=== PATIENT | female | born 2000 | race Asian ===

== ENCOUNTER 2018-10-02 11:23 | Outpatient (CLI) | payer BC | END 2018-10-02 11:24 | disposition home or self-care (01) | LOC: LAB 11:23 | PROVIDERS: ATTEND Family Medicine | DX: Z11.1 Encounter for screening for respiratory tuberculosis (principal) | CPT/HCPCS: 36415; 81599; 86480 ==

== ENCOUNTER 2019-02-02 08:00 | Outpatient (CLI) | payer BC ==
[2019-02-02 19:09] LABS: PROLACTIN 13.98 ng/mL
[2019-02-02 19:32] LABS: FOLLICLE STIMULATING HORMONE 5.92 mIU/mL
== END 2019-02-02 23:59 | disposition home or self-care (01) ==
LOC: LAB.R 08:00
PROVIDERS: ATTEND Family Medicine
DX: N39.0 Urinary tract infection, site not specified (principal); N91.2 Amenorrhea, unspecified
CPT/HCPCS: 36415; 82670; 83001; 84146; 84403; 84443; 84702; 87086

== ENCOUNTER 2019-02-18 13:58 | Outpatient (CLI) | payer BC ==
--- NOTE | 2019-02-19 10:26 | Ultrasound Report ---
Reason: AMENORRHEA Procedure Date: 02/18/2019 Accession Number: [id number] / [id number] Procedure: US - Pelvic w/Transvaginal CPT Code: FULL RESULT: EXAM: PELVIC ULTRASOUND EXAM DATE: 02/18/2019 02:42 PM. CLINICAL HISTORY: AMENORRHEA. COMPARISON: None. TECHNIQUE: Realtime transabdominal pelvic scan performed to identify the uterus and adnexa and as an overview of other pelvic structures, followed by transvaginal scan to provide greater detail of the uterus and adnexa, with static image documentation. FINDINGS: Uterus: 7.7 x 2.6 x 4.2 cm, volume 44 cc. Anteverted position. Normal overall size and echotexture. Masses: None. Endometrium: 4.2 mm. Normal thickness of the endometrium. No focal lesions are seen. Cervix: Multiple nabothian cysts are evident. Right Ovary: 3.4 x 2 x 2.2 cm, volume 7.8 cc. Normal echotexture and blood flow. Left Ovary: 2.7 x 2.3 x 2.6 cm, volume 8.4 cc. Normal echotexture and blood flow. Free Fluid: None. Other: None. IMPRESSION: 1. Normal thickness of the endometrium without focal lesions. 2. Multiple cervical nabothian cysts are noted. 3. Bilateral ovaries image within normal limits. [facility]
== END 2019-02-18 13:59 | disposition home or self-care (01) ==
LOC: DI 13:58
PROVIDERS: ATTEND Family Medicine
DX: N88.8 Other specified noninflammatory disorders of cervix uteri (principal); N91.2 Amenorrhea, unspecified
CPT/HCPCS: 76830; 76856

== ENCOUNTER 2019-05-11 08:00 | Outpatient (CLI) | payer BC ==
[2019-05-11 19:19] LABS: BILIRUBIN,URINE NEGATIVE (NEGATIVE); CLARITY,URINE CLEAR (CLEAR); GLUCOSE, URINE (UA) NEGATIVE (NEGATIVE); KETONES,URINE (UA) NEGATIVE (NEGATIVE); LEUKOCYTE ESTERASE, URINE TRACE (NEGATIVE); NITRITE,URINE NEGATIVE (NEGATIVE); OCCULT BLOOD,URINE TRACE-INTA (NEGATIVE); PH,URINE 8.5 PH (5.0-7.5); PROTEIN,URINE NEGATIVE (NEGATIVE); UROBILINOGEN,URINE 1 (NORMAL) E.U./dL (NORMAL)
[2019-05-11 19:31] LABS: BACTERIA,URINE Few /HPF (None Seen); RBC,URINE 0-5 /HPF (0-5); SQUAMOUS EPITHELIAL CELL,UR MANY Squamous (<= Few)
== END 2019-05-11 23:59 | disposition home or self-care (01) ==
LOC: LAB.R 08:00
PROVIDERS: ATTEND Nurse Practitioner Family
DX: B37.3 Candidiasis of vulva and vagina (principal)
CPT/HCPCS: 81001; 81003; 87086

== ENCOUNTER 2020-06-19 10:03 | Outpatient (CLI) | payer OTHER | END 2020-06-19 10:04 | disposition home or self-care (01) | LOC: COV 10:03 | PROVIDERS: ATTEND Family Medicine | DX: Z20.822 Contact with and (suspected) exposure to COVID-19 (principal) ==

== ENCOUNTER 2020-06-29 08:00 | Outpatient (CLI) | payer OTHER ==
[2020-06-29 18:50] LABS: BASOPHILS # (AUTO) 0.1 10^3/uL (0.0-0.1); BASOPHILS % (AUTO) 0.6 %; EOSINOPHILS # (AUTO) 0.1 10^3/uL (0.0-0.7); EOSINOPHILS % (AUTO) 1.7 %; HGB - HEMOGLOBIN 12.7 g/dL (12.0-16.0); LYMPHOCYTES # (AUTO) 2.4 10^3/uL (1.5-3.5); LYMPHOCYTES % (AUTO) 30.8 %; MEAN CORPUSCULAR HEMOGLOBIN 30.1 pg (27.0-31.0); MEAN CORPUSCULAR HGB CONC 32.7 g/dL (32.0-36.0); MEAN CORPUSCULAR VOLUME 91.9 fL (81.0-99.0); MEAN PLATELET VOLUME 9.8 fL (7.9-10.8); MONOCYTES # (AUTO) 0.6 10^3/uL (0.0-1.0); MONOCYTES % (AUTO) 8.2 %; NEUTROPHILS # (AUTO) 4.6 10^3/uL (1.5-6.6); NEUTROPHILS % (AUTO) 58.6 %; PLT - PLATELET COUNT 381 10^3/uL (130-450); RED BLOOD COUNT 4.22 10^6/uL (4.20-5.40); RED CELL DISTRIBUTION WIDTH 11.9 % (12.0-15.0); WHITE BLOOD COUNT 7.8 x10^3/uL (4.8-10.8)
[2020-06-29 19:07] LABS: HCG,QUALITATIVE BLOOD NEGATIVE
[2020-06-29 19:19] LABS: ALBUMIN 4.6 g/dL (3.2-5.5); ALBUMIN/GLOBULIN RATIO 1.5 (1.0-2.2); ALKALINE PHOSPHATASE 64 IU/L (42-121); ALT ALANINE AMINOTRANSFERASE 14 IU/L (10-60); AST ASPARTATE AMINOTRANSFERASE 18 IU/L (10-42); BILIRUBIN,TOTAL 0.5 mg/dL (0.2-1.0); BUN - BLOOD UREA NITROGEN < 5 mg/dL (6-20); CALCIUM 9.9 mg/dL (8.5-10.3); CARBON DIOXIDE - CO2 27 mmol/L (21-32); CHLORIDE 106 mmol/L (101-111); CREATININE 0.7 mg/dL (0.4-1.0); GLUCOSE 83 mg/dL (70-100); TOTAL PROTEIN 7.7 g/dL (6.7-8.2)
[2020-06-29 19:23] LABS: PROLACTIN 6.46 ng/mL
[2020-06-29 19:45] LABS: FOLLICLE STIMULATING HORMONE 7.48 mIU/mL
== END 2020-06-29 23:59 | disposition home or self-care (01) ==
LOC: LAB.WCP 08:00
PROVIDERS: ATTEND Family Medicine
DX: N92.6 Irregular menstruation, unspecified (principal)
CPT/HCPCS: 36415; 80053; 83001; 84146; 84403; 84443; 84703; 85025

== ENCOUNTER 2020-10-25 08:00 | Outpatient (CLI) | payer OTHER ==
[2020-10-25 18:32] LABS: BASOPHILS % (AUTO) 0.6 %; EOSINOPHILS # (AUTO) 0.1 10^3/uL (0.0-0.7); EOSINOPHILS % (AUTO) 1.8 %; HCT - HEMATOCRIT 37.8 % (37.0-47.0); HGB - HEMOGLOBIN 12.2 g/dL (12.0-16.0); LYMPHOCYTES # (AUTO) 2.7 10^3/uL (1.5-3.5); LYMPHOCYTES % (AUTO) 39.6 %; MEAN CORPUSCULAR HGB CONC 32.3 g/dL (32.0-36.0); MEAN CORPUSCULAR VOLUME 92.9 fL (81.0-99.0); MEAN PLATELET VOLUME 9.9 fL (7.9-10.8); MONOCYTES # (AUTO) 0.5 10^3/uL (0.0-1.0); MONOCYTES % (AUTO) 7.9 %; NEUTROPHILS # (AUTO) 3.4 10^3/uL (1.5-6.6); PLT - PLATELET COUNT 368 10^3/uL (130-450); RED BLOOD COUNT 4.07 10^6/uL (4.20-5.40); RED CELL DISTRIBUTION WIDTH 12.3 % (12.0-15.0); WHITE BLOOD COUNT 6.8 x10^3/uL (4.8-10.8)
[2020-10-27 13:01] LABS: NIL 0.02 IU/mL; TB2-NIL 0.01 IU/mL
[2020-11-03 13:36] LABS: VARICELLA ZOSTER VZV AB IGG >4000.00 index
== END 2020-10-25 23:59 | disposition home or self-care (01) ==
LOC: LAB.WCP 08:00
PROVIDERS: ATTEND Family Medicine
DX: R04.0 Epistaxis (principal); Z23 Encounter for immunization; Z11.1 Encounter for screening for respiratory tuberculosis
CPT/HCPCS: 36415; 85025; 86317; 86480; 86735; 86762; 86765; 86787

== ENCOUNTER 2022-07-12 08:00 | Outpatient (CLI) | payer OTHER | END 2022-07-12 23:59 | disposition home or self-care (01) | LOC: LAB.N 08:00 | PROVIDERS: ATTEND Family Medicine | DX: Z13.9 Encounter for screening, unspecified (principal) | CPT/HCPCS: 81599; 86480 ==

== ENCOUNTER 2023-10-28 09:00 | Outpatient (CLI) | payer OTHER | END 2023-10-28 09:15 | disposition home or self-care (01) | LOC: LAB.N 09:00 | PROVIDERS: ATTEND Physician Assistant Medical | DX: J02.9 Acute pharyngitis, unspecified (principal) | CPT/HCPCS: 87070 ==